=== PATIENT | male | born 1940 | race Two or more races ===

== ENCOUNTER → 2021-09-29 | Outpatient (CLI) | payer MEDICARE | END | disposition home or self-care (01) | LOC: MSC 11:30 | PROVIDERS: ATTEND Internal Medicine | DX: I63.89 Other cerebral infarction (principal); I10 Essential (primary) hypertension; E11.9 Type 2 diabetes mellitus without complications; E78.5 Hyperlipidemia, unspecified; I65.09 Occlusion and stenosis of unspecified vertebral artery; I95.1 Orthostatic hypotension; R42 Dizziness and giddiness ==

== ENCOUNTER → 2021-10-06 | Outpatient (CLI) | payer MEDICARE | END | disposition home or self-care (01) | LOC: MSC 14:00 | PROVIDERS: ATTEND Internal Medicine | DX: Z51.89 Encounter for other specified aftercare (principal); I63.89 Other cerebral infarction; I65.09 Occlusion and stenosis of unspecified vertebral artery; I10 Essential (primary) hypertension; E11.9 Type 2 diabetes mellitus without complications; Z79.84 Long term (current) use of oral hypoglycemic drugs; E78.5 Hyperlipidemia, unspecified; I95.1 Orthostatic hypotension; R42 Dizziness and giddiness ==

== ENCOUNTER 2021-12-13 09:00 | Outpatient (CLI) | payer MEDICARE, OTHER | END 2021-12-13 23:59 | disposition home or self-care (01) | LOC: MSC 09:00 | PROVIDERS: ATTEND Internal Medicine | DX: Z51.89 Encounter for other specified aftercare (principal); I63.89 Other cerebral infarction; Z75.4 Unavailability and inaccessibility of other helping agencies; Z79.01 Long term (current) use of anticoagulants; Z79.82 Long term (current) use of aspirin; I65.09 Occlusion and stenosis of unspecified vertebral artery; I10 Essential (primary) hypertension; E11.9 Type 2 diabetes mellitus without complications; Z79.84 Long term (current) use of oral hypoglycemic drugs; E78.5 Hyperlipidemia, unspecified; I95.1 Orthostatic hypotension; R42 Dizziness and giddiness ==